=== PATIENT | male | born 1955 | race African-American/Black ===

== ENCOUNTER 2016-09-25 13:54 | Emergency (ER) | payer MEDICAID ==
[~2016-09-25] VITALS: Ht 185.4 cm; Wt 83.9 kg
[2016-09-25 14:03] VITALS: BP 129/98
[2016-09-25] MEDS ORDERED: TDAP [DIPH/PERTUSSIS/TET] 0.5 ML VIAL IM ONE ×2 (14:21→14:30)
== END 2016-09-25 14:37 | disposition home or self-care (01) ==
LOC: ER 13:57
DX: S71.152A Open bite, left thigh, initial encounter (principal); F17.200 Nicotine dependence, unspecified, uncomplicated; W54.0XXA Bitten by dog, initial encounter; Y93.89 Activity, other specified; Y92.89 Other specified places as the place of occurrence of the external cause; Y99.8 Other external cause status
CPT/HCPCS: 90471; 90715; 99283; A4606; Z7610

== ENCOUNTER 2019-03-09 14:57 | Inpatient (IN) | payer MEDICAID ==
[~2019-03-09] VITALS: Ht 157.5 cm; Wt 86.2 kg
--- NOTE | 2019-03-09 14:57 | NUR ---
CAME IN FOR CHEST PAIN THAT STARTED LAST NIGHT, PRESSURE LIKE RADIATES TO L ARM "WHILE WALKING TO MY CAR I FELT SOB AND PRESSURE ON MY CHEST", TO ER BED 8, HOOKED TO FINISHED GOODS PLANNER, CHANGED TO GOWN, PROVIDED W WARM BLANKET, DR LUCAS AT BEDSIDE
[2019-03-09] MEDS ORDERED: KETOROLAC TROMETHAMINE INJ 30 MG/ML VIAL IV ONE (15:30)
[2019-03-09] MEDS ORDERED: ALPRAZOLAM 0.5 MG TABLET PO ONE (15:30)
[2019-03-09] MEDS ORDERED: ONDANSETRON HCL/PF 4 MG/2 ML VIAL IVP ONE (15:30)
[2019-03-09] MEDS ORDERED: ENALAPRILAT INJ (1.25 MG/ML) 1.25 MG/ML VIAL IV PRN ×2 (15:30→19:30)
[2019-03-09] MEDS ORDERED: MAG HYDROX/AL HYDROX/SIMETH 30 ML UDC PO ONE (15:30)
[2019-03-09] MEDS ORDERED: LIDOCAINE VISCOUS 2% UD 15 ML UDC MM ONE (15:30)
[2019-03-09] MEDS ORDERED: MAG HYDROX/AL HYDROX/SIMETH 30 ML UDC ONE (15:33)
[2019-03-09] MEDS ORDERED: LIDOCAINE VISCOUS 2% UD 15 ML UDC ONE (15:33)
[2019-03-09] MEDS ORDERED: KETOROLAC TROMETHAMINE 15 MG/ML VIAL ONE (15:33)
[2019-03-09] MEDS ORDERED: ONDANSETRON HCL/PF 4 MG/2 ML VIAL ONE (15:33)
[2019-03-09] MEDS ORDERED: ENALAPRILAT INJ (1.25 MG/ML) 1.25 MG/ML VIAL IV ONE (15:34)
[2019-03-09] MEDS ORDERED: ALPRAZOLAM 0.5 MG TABLET ONE (15:34)
[2019-03-09 15:41] LABS: BASOPHILS % (AUTO) 0.9 % (0.0-2.0); EOSINOPHILS % (AUTO) 2.2 % (0.0-6.0); HEMATOCRIT 46 % (39-51); HEMOGLOBIN 15.5 g/dL (13.5-17.5); LYMPHOCYTES % (AUTO) 37.7 % (20.0-44.0); MEAN CORPUSCULAR HGB CONC 34 g/dl (31.0-36.0); MEAN CORPUSCULAR VOLUME 88 fL (80-96); MONOCYTES # (AUTO) 0.6 /CMM (0.1-1.30); MONOCYTES % (AUTO) 10.5 % (2.0-12.0); NEUTROPHILS # (AUTO) 2.6 /CMM (1.8-8.9); NEUTROPHILS % (AUTO) 48.7 % (43.0-81.0); PLATELET COUNT (AUTO) 257 /CMM (150-450); RED BLOOD CELL COUNT(AUTO) 5.16 MIL/uL (4.5-6.0); WHITE BLOOD COUNT (AUTO) 5.4 K/uL (4.3-11.0)
[2019-03-09 16:15] LABS: ALBUMIN 3.8 g/dL (3.4-5.0); BILIRUBIN,DIRECT 0.1 mg/dL (0.0-0.2); BILIRUBIN,TOTAL 0.3 mg/dL (0.2-1.0); CALCIUM, SERUM 9.3 mg/dL (8.5-10.1); CREATININE 1.6 mg/dL (0.6-1.3); POTASSIUM 4.1 mmol/L (3.5-5.1); TOTAL PROTEIN, SERUM 7.4 g/dL (6.4-8.2)
[2019-03-09] MEDS ORDERED: ASPIRIN 325 MG TABLET ONE (16:56)
[2019-03-09] MEDS ORDERED: NIFEdipine (10MG) 10 MG CAPSULE PO ONE (17:00)
[2019-03-09] MEDS ORDERED: HYDROCHLOROTHIAZIDE 25 MG TABLET PO ONE (17:00)
[2019-03-09] MEDS ORDERED: ASPIRIN 325 MG TABLET PO ONE (17:00)
[2019-03-09] MEDS ORDERED: NIFEdipine (10MG) 10 MG CAPSULE ONE (17:05)
[2019-03-09] MEDS ORDERED: HYDROCHLOROTHIAZIDE 25 MG TABLET ONE (17:05)
--- NOTE | 2019-03-09 17:15 | NUR ---
EPIC LOADER ENGINEER PAGED
--- NOTE | 2019-03-09 17:17 | NUR ---
RECIEVED BED 321-2
--- NOTE | 2019-03-09 17:35 | NUR ---
REPORT GIVEN TO AARON KOO OF TELE UNIT
[2019-03-09] MEDS ORDERED: IV NS 0.9% 1,000 ML IV PRN (17:37)
[2019-03-09] MEDS ORDERED: ENOXAPARIN SODIUM 80 MG/0.8 ML DISP.SYRIN SQ SCH (18:00)
[2019-03-09] MEDS ORDERED: ALBUTEROL FS 2.5 MG/3 ML VIAL.NEB NEB PRN (18:00)
[2019-03-09] MEDS ORDERED: hydrALAZINE HCL 25 MG TABLET PO PRN (18:00)
[2019-03-09] MEDS ORDERED: ZOLPIDEM TARTRATE 5 MG TABLET PO PRN (18:00)
[2019-03-09] MEDS ORDERED: HYDROCODONE/APAP 5/325MG 1 EACH TABLET PO PRN (18:00)
[2019-03-09] MEDS ORDERED: ACETAMINOPHEN 325 MG TABLET PO PRN (18:00)
[2019-03-09] MEDS ORDERED: Z GUARD REMEDY 2 OZ OINT TP PRN (18:00)
[2019-03-09] MEDS ORDERED: ALPRAZOLAM 0.25 MG TABLET PO PRN ×2 (18:00→20:00)
[2019-03-09] MEDS ORDERED: MAGNESIUM HYDROXIDE 30 ML UDC PO PRN (18:00)
[2019-03-09] MEDS ORDERED: ENALAPRILAT DIHYD. (2.5MG/ML) 1.25 MG/ML VIAL IV PRN (18:00)
[2019-03-09] MEDS ORDERED: ONDANSETRON HCL/PF 4 MG/2 ML VIAL IVP PRN (18:00)
[2019-03-09] MEDS ORDERED: MORPHINE SULFATE INJ 2 MG/ML DISP.SYRIN IV PRN (18:00)
[2019-03-09] MEDS ORDERED: MAG HYDROX/AL HYDROX/SIMETH 30 ML UDC PO PRN (18:00)
--- NOTE | 2019-03-09 18:02 | NUR ---
[place] in [facility] - 03/09/19 at 1802 by KATHERINE REPORT GIVEN TO WYATT KOO FOR BERT PT WILLVin E TRANSPORTED TO [address] [place] [address]
--- NOTE | 2019-03-09 18:35 | NUR ---
MS RN RECEIVED A NEW ADMISSION FROM ER, AWAKE,ALERT,ORIENTED X4,CAME IN W/ CHEST PAIN,AWAKE,ALERT,ORIENTED X4,NOT IN ANY FORM OF DISTRESS, RESPIRATIONS EVEN AND UNLABORED,NO SOB NOTED, WILL MONITOR PATIENT'S CONDITION.
--- NOTE | 2019-03-09 18:50 | NUR ---
MS RN EATING DINNER AT THIS TIME, WANTS IV TO BE CONNECTED BEFORE SLEEPING,ALL NEEDS ATTENDED.
--- NOTE | 2019-03-09 19:15 | NUR ---
MS RN NO NEED TO INSERT BEAVER, PATIENT IS AMBULATORY.
[2019-03-09 20:00] VITALS: BP 122/75
[2019-03-09] MEDS: ATORVASTATIN 40 MG TABLET PO SCH (21:18)
[2019-03-09] MEDS: NICOTINE PATCH (21MG) 21 MG PATCH.TD24 TD SCH (21:18)
[2019-03-10] VITALS (46 sets, daily range): BP systolic 89–203; BP diastolic 60–150
[2019-03-10 06:23] LABS: BASOPHILS % (AUTO) 0.7 % (0.0-2.0); EOSINOPHILS % (AUTO) 2.5 % (0.0-6.0); HEMATOCRIT 44 % (39-51); HEMOGLOBIN 14.6 g/dL (13.5-17.5); LYMPHOCYTES % (AUTO) 45.9 % (20.0-44.0); MEAN CORPUSCULAR HGB CONC 33 g/dl (31.0-36.0); MEAN CORPUSCULAR VOLUME 88 fL (80-96); MONOCYTES # (AUTO) 0.4 /CMM (0.1-1.30); MONOCYTES % (AUTO) 9.7 % (2.0-12.0); NEUTROPHILS # (AUTO) 1.8 /CMM (1.8-8.9); NEUTROPHILS % (AUTO) 41.2 % (43.0-81.0); PLATELET COUNT (AUTO) 247 /CMM (150-450); RED BLOOD CELL COUNT(AUTO) 4.96 MIL/uL (4.5-6.0); WHITE BLOOD COUNT (AUTO) 4.5 K/uL (4.3-11.0)
--- NOTE | 2019-03-10 06:25 | NUR ---
MS RN NOTES AWAKE & RESPONSIVE. NOT IN ANY DISTRESS. NO SOB NOTED. DENIES ANY PAIN OR DISCOMFORT AT THIS TIME. WITH IVF INFUSING WELL. MONITORED ACCORDINGLY. CALL LIGHT WITHIN REACH. BED IN LOWEST POSITION. SR UP X 2 FOR SAFETY. WILL ENDORSE TO NEXT SHIFT.
[2019-03-10 06:50] LABS: THYROID STIMULATING HORMONE 1.836 uIU/mL (0.358-3.74)
[2019-03-10 06:52] LABS: CALCIUM, SERUM 8.7 mg/dL (8.5-10.1); CREATININE 1.3 mg/dL (0.6-1.3); MAGNESIUM 2.2 mg/dL (1.8-2.4); PHOSPHORUS 3.8 mg/dL (2.5-4.9)
--- NOTE | 2019-03-10 07:11 | NUR ---
STEELSCOPE OPERATOR OPENING NOTES RECEIVED PT AWAKE IN BED IN NO ACUTE SIGNS OF DISTRESS. A/O X 4. ABLE TO MAKE NEEDS KNOWN, DENIES PAIN OR ANY DISCOMFORTS AT THIS TIME. ON ROOM AIR, BREATHING EVEN AND UNLABORED. ON TELEMONITORING WITH CURRENT READING OF SR WITH HR ON THE 80'S, NO C/O CARDIAC DISTRESS VOICED. IV ACCESS ON LAC g#20 PATENT AND INTACT, IVF OF NS @ 75ML/HR INFUSING WELL, NO REDNESS OR INFILTRATIONS NOTED. SAFETY MEASURES IN PLACE. BED IN LOW LOCKED POSITION WITH SR UP X2. CALL LIGHT WITHIN REACH. WILL CONTINUE TO MONITOR ACCORDINGLY.
[2019-03-10] MEDS ORDERED: IV NS 0.9% 0 ML IV ONE (09:03)
[2019-03-10] MEDS ORDERED: IV NS 0.9% 250 ML IV ONE (09:03)
[2019-03-10] MEDS ORDERED: FENTANYL PF 100MCG/2ML AMPUL ONE (09:04)
[2019-03-10] MEDS ORDERED: VERAPAMIL HCL IV 5 MG/2 ML VIAL ONE (09:04)
[2019-03-10] MEDS ORDERED: LIDOCAINE HCL/PF 1% 30 ML SDV ONE (09:04)
[2019-03-10] MEDS ORDERED: HEPARIN SODIUM, PORCINE 1,000 UNIT/ML VIAL ONE (09:04)
[2019-03-10] MEDS ORDERED: MIDAZOLAM HCL 2 MG/2ML VIAL ONE (09:04)
[2019-03-10] MEDS ORDERED: NITROGLYCERIN ICAR 1,000 MCG/10 ML VIAL ICAR ONE (09:05)
[2019-03-10] MEDS: CARVEDILOL 3.125 MG TABLET PO SCH ×2 (09:17→22:28)
[2019-03-10] MEDS: AMLODIPINE BESYLATE 5 MG TABLET PO SCH (09:17)
[2019-03-10] MEDS: ASPIRIN 81 MG TAB.CHEW PO SCH (09:17)
[2019-03-10] MEDS ORDERED: IODIXANOL 320MG/ML 100 ML IV ONE (09:27)
--- NOTE | 2019-03-10 09:44 | NUR ---
RN NOTES PT SEEN AND EVALUATED BY DR CORTEZ THIS MORNING WITH ORDER TO DO CARDIAC CATHETERIZATION. PROCEDURE WAS EXPLAINED BY DR CORTEZ AND PT VERBALIZED UNDERSTANDING. ALL CONSENTS SIGNED AND FILED ON CHART. WILL CONTINUE TO MONITOR.
--- NOTE | 2019-03-10 10:26 | NUR ---
RN NOTES PT PICKED UP VIA [facility] AT 1020 BY [facility] AND HANANE SLOAN ON WAY TO CARDIAC LAB.
[2019-03-10] MEDS ORDERED: IODIXANOL 320MG/ML 50 ML IV ONE (11:07)
--- NOTE | 2019-03-10 12:35 | NUR ---
RN NOTES ALL BELONGINGS SENT TO ICU RM 255 BY DORON Townsend
--- NOTE | 2019-03-10 12:40 | NUR ---
received pt from dairy laboratory technician s/p coronary angiogram, a/o x4, follows commands, NSR, RA sat well, NPO, urinates in urinal, no BM, TR band on R wrist, no bleeding noted, pulses palpable, good sensations, v/s stable, no pain, pt turns and repositions by himself.
--- NOTE | 2019-03-10 16:00 | NUR ---
TR band off no bleeding noted, SBP 180 - 200, MD called orders received.
[2019-03-10] MEDS ORDERED: hydrALAZINE HCL IV 20 MG VIAL IV ONE (16:30)
--- NOTE | 2019-03-10 16:46 | NUR ---
pt is resting in the bed, a/o x4, SR, RA, BRP, no bleeding noted from the R hand since TR band removal, v/s stable, no pain. Awaiting for transfer to different hospital, case fitter working on the case, family at the bedside.
[2019-03-10] MEDS ORDERED: HEPARIN SODIUM, PORCINE 5000 UNITS/1 ML VIAL IV ONE (18:00)
[2019-03-10] MEDS ORDERED: NTG 50 MG/D5W250 ML BOTTL 250 ML IV PRN (18:00)
[2019-03-10] MEDS: HEPARIN INFUSION/D5W 500 ML IV PRN (19:45)
--- NOTE | 2019-03-10 20:48 | NUR ---
horticulture superintendent. initial assessment, received the pt rest on the bed. awake, alert, follow commands. manager monitoring showing s tach. room air sat 98%. pt denies sob or chest pain. iv rt upper arm mid line. heparin 1200units/h,nitro drip 7mcgs/h.rt radial procedure site is no bleeding noted. will continue to monitor vitals.
[2019-03-10] MEDS: ATORVASTATIN 40 MG TABLET PO SCH (22:28)
[2019-03-10] MEDS: NICOTINE PATCH (21MG) 21 MG PATCH.TD24 TD SCH (22:28)
[2019-03-11] VITALS (41 sets, daily range): BP systolic 93–162; BP diastolic 49–109
--- NOTE | 2019-03-11 04:20 | NUR ---
NUTRITION CONSULTANT. PT IS NOT TRANSFER TO [facility] PT INSURANCE NOT ACCEPTING
--- NOTE | 2019-03-11 04:24 | NUR ---
CORPORATE ETHICS OFFICER. AM CARE, ORAL CARE, BED BATH GIVEN. PT IS NPO. WAITING FOR TRANSFER TO HIGH LEVEL OF CARE
--- NOTE | 2019-03-11 04:26 | NUR ---
LEGAL EXAMINER HEPARIN 1200 UNIT. H
--- NOTE | 2019-03-11 07:15 | NUR ---
RN INITIAL NOTES RECEIVED PT A/OX4. ON ROOM AIR. NO RESPIRATORY DISTRESS NOTED. NO SOB NOTED. DENIES ANY PAIN. LINETTE MIDLINE IN PLACE. ON HEPARIN AT 1200U/HR. NEXT PTT ON 03/12/19 AT 0200. NO ASE NOTED. PT CONTINENT. SKIN INTACT. CALL LIGHT WITHIN REACH. AWAITING FOR TRANSFER TO HIGHER LEVEL OF CARE. WILL MONITOR.
[2019-03-11] MEDS: ASPIRIN 81 MG TAB.CHEW PO SCH (08:32)
[2019-03-11] MEDS: CARVEDILOL 3.125 MG TABLET PO SCH (08:33)
[2019-03-11] MEDS: AMLODIPINE BESYLATE 5 MG TABLET PO SCH (08:33)
[2019-03-11 09:31] LABS: BASOPHILS % (AUTO) 0.4 % (0.0-2.0); EOSINOPHILS % (AUTO) 1.5 % (0.0-6.0); HEMATOCRIT 49 % (39-51); HEMOGLOBIN 16.5 g/dL (13.5-17.5); LYMPHOCYTES % (AUTO) 31.5 % (20.0-44.0); MEAN CORPUSCULAR HGB CONC 34 g/dl (31.0-36.0); MEAN CORPUSCULAR VOLUME 88 fL (80-96); MONOCYTES # (AUTO) 0.4 /CMM (0.1-1.30); NEUTROPHILS # (AUTO) 3.8 /CMM (1.8-8.9); NEUTROPHILS % (AUTO) 60.6 % (43.0-81.0); PLATELET COUNT (AUTO) 247 /CMM (150-450); RED BLOOD CELL COUNT(AUTO) 5.56 MIL/uL (4.5-6.0); WHITE BLOOD COUNT (AUTO) 6.3 K/uL (4.3-11.0)
[2019-03-11 09:48] LABS: ALBUMIN 3.7 g/dL (3.4-5.0); BILIRUBIN,TOTAL 0.4 mg/dL (0.2-1.0); CALCIUM, SERUM 9.5 mg/dL (8.5-10.1); CREATININE 1.4 mg/dL (0.6-1.3); MAGNESIUM 2.3 mg/dL (1.8-2.4); PHOSPHORUS 3.8 mg/dL (2.5-4.9); POTASSIUM 3.4 mmol/L (3.5-5.1); TOTAL PROTEIN, SERUM 7.5 g/dL (6.4-8.2)
[2019-03-11] MEDS ORDERED: POTASSIUM CHLORIDE 20 MEQ TAB.PRT.SR PO SCH (14:30)
--- NOTE | 2019-03-11 14:30 | NUR ---
RN NOTES CALLED [facility] FOR REPORT, SPOKE WITH HANANE CALDERON ([phone] EXT [phone]). ALL PERTINENT INFORMATION NOTED. ACCEPTING MD WILL BE DR SAVAGE. PT NOTIFIED
[2019-03-11] MEDS: HEPARIN INFUSION/D5W 500 ML IV PRN (14:59)
--- NOTE | 2019-03-11 20:16 | NUR ---
CANVASS MANAGER: PT. PICKED UP BY [facility] IN STABLE CONDITION. REMAINED A/O X 3, ON ROOM AIR WT NO ACUTE DISTRESS, NO C/O PAIN. SR ON WHEELAGE CLERK. AFEBRILE. ALL BELONGINGS SENT WT PATIENT. EXIT CARE DONE AND VERBALIZED UNDERSTANDING. REPORT GIVEN TO HANANE PAUL FROM [facility] ROOM 3009.
== END 2019-03-11 20:26 | disposition short-term general hospital (02) | DRG 190 ==
LOC: ER 14:59 → TELE 17:25 → ICU 03-10 11:00
PROVIDERS: ADMIT Internal Medicine; ATTEND Internal Medicine
PROC: 4A023N7 Measurement of Cardiac Sampling and Pressure, Left Heart, Percutaneous Approach (ICD-10-PCS; principal; 2019-03-10)
PROC: B2111ZZ Fluoroscopy of Multiple Coronary Arteries using Low Osmolar Contrast (ICD-10-PCS; principal; 2019-03-10)
PROC: B2151ZZ Fluoroscopy of Left Heart using Low Osmolar Contrast (ICD-10-PCS; principal; 2019-03-10)
DX: I21.4 Non-ST elevation (NSTEMI) myocardial infarction (principal); N17.0 Acute kidney failure with tubular necrosis; E11.9 Type 2 diabetes mellitus without complications; E78.5 Hyperlipidemia, unspecified; I10 Essential (primary) hypertension; Z72.0 Tobacco use; I25.10 Atherosclerotic heart disease of native coronary artery without angina pectoris
CPT/HCPCS: 36415; 71045-TC; 80048-TC; 80053-TC; 80061-TC; 80076-TC; 83540-TC; 83690-TC; 83735-TC; 84100-TC; 84443-TC; 84484-TC; 85025-TC; 85610-TC; 85730-TC; 87081-TC; 93307-TC; 93452; A4216; C1769; G0378; J0360; J1644; J1650; J1885; J2250; J2405; J3010; J3490; J7030; J7050

== ENCOUNTER 2019-08-23 11:05 | Emergency (ER) | payer MEDICAID ==
[~2019-08-23] VITALS: Ht 185.4 cm; Wt 90.7 kg
--- NOTE | 2019-08-23 11:15 | NUR ---
c/o left arm numbness started 5am this morning,"felt different per patient" Patient a/ox4, breathing even and unlabored, nos ob noted, needs attended, kept comfortable.
[2019-08-23] MEDS ORDERED: ATOR40TA PO (11:24)
[2019-08-23] MEDS ORDERED: NITR0.4T48 SL (11:24)
[2019-08-23] MEDS ORDERED: METO25TA4 PO (11:24)
[2019-08-23] MEDS ORDERED: LISI10TA5 PO (11:24)
[2019-08-23] MEDS ORDERED: ASPI-1152 PO (11:24)
[2019-08-23] MEDS ORDERED: TAMS-12 PO (11:24)
[2019-08-23] MEDS ORDERED: IBUPROFEN 600 MG TABLET PO ONE ×2 (11:30→11:37)
[2019-08-23] MEDS ORDERED: ACETAMINOPHEN ES 500 MG TABLET PO ONE (11:30)
[2019-08-23] MEDS ORDERED: ACETAMINOPHEN ES 500 MG TABLET ONE (11:37)
[2019-08-23 11:46] LABS: BASOPHILS % (AUTO) 0.4 % (0.0-2.0); EOSINOPHILS % (AUTO) 1.8 % (0.0-6.0); HEMATOCRIT 45 % (39-51); HEMOGLOBIN 14.8 g/dL (13.5-17.5); LYMPHOCYTES # (AUTO) 2.3 /CMM (0.8-4.8); LYMPHOCYTES % (AUTO) 41.5 % (20.0-44.0); MEAN CORPUSCULAR HGB CONC 33 g/dl (31.0-36.0); MEAN CORPUSCULAR VOLUME 87 fL (80-96); MONOCYTES # (AUTO) 0.5 /CMM (0.1-1.30); MONOCYTES % (AUTO) 8.5 % (2.0-12.0); NEUTROPHILS # (AUTO) 2.7 /CMM (1.8-8.9); NEUTROPHILS % (AUTO) 47.8 % (43.0-81.0); PLATELET COUNT (AUTO) 256 /CMM (150-450); RED BLOOD CELL COUNT(AUTO) 5.17 MIL/uL (4.5-6.0); WHITE BLOOD COUNT (AUTO) 5.5 K/uL (4.3-11.0)
[2019-08-23 11:54] LABS: CARBON DIOXIDE 29 mmol/L (21-32); CHLORIDE 105 mmol/L (98-107); CREATININE 1.7 mg/dL (0.6-1.3); GLUCOSE 248 mg/dL (74-106); POTASSIUM 4.3 mmol/L (3.5-5.1); SODIUM SERUM 143 mmol/L (136-145); UREA NITROGEN, BLOOD 15 mg/dL (7-18)
[2019-08-23 12:01] LABS: ALANINE AMINOTRANSFERASE 38 U/L (12-78); ALKALINE PHOSPHATASE 87 U/L (46-116); ASPARTATE AMINOTRANSFERASE 19 U/L (15-37); BILIRUBIN,DIRECT 0.1 mg/dL (0.0-0.2); BILIRUBIN,TOTAL 0.5 mg/dL (0.2-1.0); TOTAL PROTEIN, SERUM 7.5 g/dL (6.4-8.2)
--- NOTE | 2019-08-23 12:44 | NUR ---
patient ambulatory with a steady gait IV removed. Catheter intact and site benign. Pressure and 4x4 applied to site. No bleeding noted.Patient discharged to home in stable condition. Written and verbal after care instructions given. Patient verbalizes understanding of instruction.
[2019-08-23 12:45] VITALS: BP 155/94
== END 2019-08-23 12:46 | disposition home or self-care (01) ==
LOC: ER 11:12
DX: M79.602 Pain in left arm (principal); R07.89 Other chest pain; I10 Essential (primary) hypertension; Z79.82 Long term (current) use of aspirin; Z79.899 Other long term (current) drug therapy
CPT/HCPCS: 36415; 71045-TC; 80048-TC; 80076-TC; 84484-TC; 85025-TC

== ENCOUNTER 2023-04-15 20:47 | Emergency (ER) | payer BC, MEDICAID ==
[~2023-04-15] VITALS: Ht 185.4 cm; Wt 77.1 kg
[~2023-04-15 20:47] MED LIST: ASPI-1420 PO; ATOR40TA PO; LISI10TA29 PO; METO25TA4 PO; NITR0.4T48 SL; TAMS-12 PO
[2023-04-15 21:03] VITALS: BP 166/155; TEMP 98.6; O2SAT 95
[2023-04-15] MEDS ORDERED: LIDOCAINE 2% JEL UROJET 10 ML MM ONE (21:07)
== END 2023-04-15 21:50 | disposition home or self-care (01) ==
LOC: ER 20:50
DX: D29.1 Benign neoplasm of prostate (principal); R33.9 Retention of urine, unspecified; I10 Essential (primary) hypertension; Z60.2 Problems related to living alone
CPT/HCPCS: 99284; 51702; J3490